=== PATIENT | female | born 1990 | race African-American/Black ===

== ENCOUNTER 2016-04-24 19:38 | Emergency (ER) | payer OTHER ==
[2016-04-24] MEDS ORDERED: ACETAMINOPHEN 325 MG TABLET PO ONE (20:08)
--- NOTE | 2016-04-24 20:09 | ER Document Report ---
ED Medical Screen (RME) - General Stated Complaint: FLU LIKE SYMPTOMS Mode of Arrival: Ambulatory Information source: Patient Notes: Patient complains of fever, sore throat and body aches. Patient also reports left lower pelvic pain. Patient states symptoms started yesterday. Patient is currently 17 weeks . hx: Depression, PTSD, bipolar I have greeted and performed a rapid initial assessment of this patient. A comprehensive ED assessment and evaluation of the patient, analysis of test results and completion of the medical decision making process will be conducted by additional ED providers. TRAVEL OUTSIDE OF THE [place] IN LAST 30 DAYS: No - Related Data Allergies/Adverse Reactions: No Known Allergies Allergy (Verified 04/24/16 20:06) Past Medical History Psychiatric Medical History: Reports: Hx Bipolar Disorder, Hx Depression Past Surgical History: Reports: Hx Gynecologic Surgery - Therapeutic at age 17, Hx Orthopedic Surgery - BL foot - Immunizations Hx Diphtheria, Pertussis, Tetanus Vaccination: No Physical Exam - Vital signs Vitals: Temp Pulse Resp BP Pulse Ox 101.8 F H 128 H 20 126/69 H 100 04/24/16 20:06 04/24/16 20:06 04/24/16 20:06 04/24/16 20:06 04/24/16 20:06 - Abdominal Tenderness: Tender - Left lower pelvic pain Course - Vital Signs Vital signs: Temp Pulse Resp BP Pulse Ox 101.8 F H 128 H 20 126/69 H 100 04/24/16 20:06 04/24/16 20:06 04/24/16 20:06 04/24/16 20:06 04/24/16 20:06
[2016-04-24 22:25] LABS: APPEARANCE,URINE SLIGHTLY-CLOUDY; BILIRUBIN,URINE NEGATIVE (NEGATIVE); GLUCOSE, URINE NEGATIVE (NEGATIVE); KETONES,URINE NEGATIVE (NEGATIVE); LEUKOCYTE ESTERASE,URINE NEGATIVE (NEGATIVE); NITRITE,URINE NEGATIVE (NEGATIVE); PROTEIN,URINE NEGATIVE (NEGATIVE); URINE SPECIFIC GRAVITY 1.026; UROBILINOGEN,URINE NEGATIVE mg/dL (<2.0)
[2016-04-24] MEDS ORDERED: OSELTAMIVIR PHOSPHATE 75 MG CAPSULE PO ONE (22:30)
[2016-04-24 23:07] VITALS: BP 106/57
--- NOTE | 2016-04-24 23:10 | ER Document Report ---
[id number] Mode of Arrival: Ambulatory Information source: Patient Notes: 25-year-old female who is 17 weeks with a confirmed IUP was not been immunized presents with complaints of generalized body aches fevers and nonproductive cough with a sore throat. Patient notes symptoms started yesterday TRAVEL OUTSIDE OF THE [place] IN LAST 30 DAYS: No - HPI Onset: Yesterday Onset/Duration: Sudden Quality of pain: Achy Severity: Mild Pain Level: 1 Associated symptoms: Body/muscle aches, Nonproductive cough, Fever, Sore throat Exacerbated by: Denies Relieved by: Denies Similar symptoms previously: No Recently seen / treated by doctor: No - Related Data Allergies/Adverse Reactions: No Known Allergies Allergy (Verified 04/24/16 20:06) Past Medical History - General Information source: Patient - Social History Smoking Status: Unknown if Ever Smoked Cigarette use (# per day): No Chew tobacco use (# tins/day): No Smoking Education Provided: No Family History: Reviewed & Not Pertinent Patient has suicidal ideation: No Patient has homicidal ideation: No Renal/ Medical History: Denies: Hx Peritoneal Dialysis Psychiatric Medical History: Reports: Hx Bipolar Disorder, Hx Depression Past Surgical History: Reports: Hx Gynecologic Surgery - Therapeutic at age 17, Hx Orthopedic Surgery - BL foot - Immunizations Hx Diphtheria, Pertussis, Tetanus Vaccination: No Review of Systems - Review of Systems Notes: REVIEW OF SYSTEMS: CONSTITUTIONAL : Admits fever EENT: Admits her throat CARDIOVASCULAR: Denies chest pain. Denies palpitations or racing or irregular heart beat. Denies ankle edema. RESPIRATORY: Denies cough, cold, or chest congestion. Denies shortness of breath, difficulty breathing, or wheezing. GASTROINTESTINAL: Denies abdominal pain or distention. Denies nausea, vomiting , or diarrhea. Denies blood in vomitus, stools, or per rectum. Denies black, tarry stools. Denies constipation. GENITOURINARY: Denies difficulty urinating, painful urination, burning, frequency, blood in urine, or discharge. FEMALE GENITOURINARY: Denies vaginal bleeding, heavy or abnormal periods, irregular periods. Denies vaginal discharge or odor. MUSCULOSKELETAL: Admits to body aches. SKIN: Denies rash, lesions or sores. HEMATOLOGIC : Denies easy bruising or bleeding. LYMPHATIC: Denies swollen, enlarged glands. NEUROLOGICAL: Denies confusion or altered mental status. Denies passing out or loss of consciousness. Denies dizziness or lightheadedness. Denies headache. Denies weakness or paralysis or loss of use of either side. Denies problems with gait or speech. Denies sensory loss, numbness, or tingling. Denies seizures. PSYCHIATRIC: Denies anxiety or stress. Denies depression, suicidal ideation, or homicidal ideation. ALL OTHER SYSTEMS REVIEWED AND NEGATIVE. Dictation was performed using [employer] voice recognition software PHYSICAL EXAMINATION: GENERAL: Well-appearing, well-nourished and in no acute distress. HEAD: Atraumatic, normocephalic. EYES: Pupils equal round and reactive to light, extraocular movements intact, conjunctiva are normal. ENT: Nares patent, oropharynx clear without exudates. Moist mucous membranes. NECK: Normal range of motion, supple without lymphadenopathy LUNGS: Breath sounds clear to auscultation bilaterally and equal. No wheezes rales or rhonchi. HEART: Tachycardic on arrival ABDOMEN: Soft, nontender, nondistended abdomen. No guarding, no rebound. No masses appreciated. Female : deferred Musculoskeletal: Normal range of motion, no pitting or edema. No cyanosis. NEUROLOGICAL: Cranial nerves grossly intact. Normal speech, normal gait. Normal sensory, motor exams PSYCH: Normal mood, normal affect. SKIN: Warm, Dry, normal turgor, no rashes or lesions noted. Physical Exam - Vital signs Vitals: Temp Pulse Resp BP Pulse Ox 101.8 F H 128 H 20 126/69 H 100 04/24/16 20:06 04/24/16 20:06 04/24/16 20:06 04/24/16 20:06 04/24/16 20:06 Course - Re-evaluation Re-evalutation: 04/24/16 23:17 Patient noted to be febrile tachycardic on arrival, she did test positive for influenza A. Patient was given Tylenol which resolved her fever. Her airway was much better on discharge. I did offer IV fluids if the tachycardia continued, however since as result patient wishes to go home. I will discharge home with the understanding that she must return immediately if symptoms worsen. Patient was given Tamiflu in the emergency department and was given a prescription for it for home After performing a Medical Screening Examination, I estimate there is LOW risk for ACUTE CORONARY SYNDROME, RESPIRATORY FAILURE, SEPSIS OR MENINGITIS, thus I consider the discharge disposition reasonable. The patient and I have discussed the diagnosis and risks, and we agree with discharging home with close follow- up. We also discussed returning to the Emergency Department immediately if new or worsening symptoms occur. We have discussed the symptoms which are most concerning (e.g., changing or worsening pain, trouble swallowing or breathing, neck stiffness, fever) that necessitate immediate return. - Vital Signs Vital signs: Temp Pulse Resp BP Pulse Ox 98.6 F 108 H 20 106/57 L 98 04/24/16 23:05 04/24/16 23:05 04/24/16 20:06 04/24/16 23:05 04/24/16 23:05 - Laboratory Laboratory results interpreted by me: 04/24/16 20:45 Urine Ascorbic Acid 40 H Discharge - Discharge Clinical Impression: Influenza A, Tachycardia Fever Qualifiers: Fever type: unspecified Qualified Code(s): R50.9 - Fever, unspecified Condition: Stable Disposition: HOME, SELF-CARE Instructions: Influenza ([facility]) [id number], Fever ([facility]) Additional Instructions: You may only take Tylenol for fever and pain as this is the safest and Return immediately if you're not hydrating well or if there are any other concerns at all Recheck with your family doctor in 1-2 days for reevaluation Prescriptions: Oseltamivir Phosphate [Tamiflu 75 mg Capsule] 75 mg PO BID #9 capsule Promethazine HCl [Phenergan 25 mg Tablet] 1 - 2 tab PO Q6H PRN #15 tablet PRN Reason:
== END 2016-04-24 23:25 | disposition home or self-care (01) ==
LOC: ER 19:38
DX: O26.92 Pregnancy related conditions, unspecified, second trimester (principal); J11.1 Influenza due to unidentified influenza virus with other respiratory manifestations; R00.0 Tachycardia, unspecified; R50.9 Fever, unspecified; M79.1 Myalgia; Z3A.18 18 weeks gestation of pregnancy
CPT/HCPCS: 99283; 87070; 87880; 81001; 87804; J3490